=== PATIENT | male | born 1990 | race Caucasian/White ===

== ENCOUNTER 2021-08-22 13:37 | Emergency (ER) | payer OTHER ==
[~2021-08-22] VITALS: Ht 180.3 cm; Wt 65.8 kg
[2021-08-22 13:42] VITALS: BP 137/78
[2021-08-22] MEDS ORDERED: PROZAC 10 MG CA10 MG PO (13:45)
== END 2021-08-22 15:50 | disposition home or self-care (01) ==
LOC: ER 13:37
DX: S61.012A Laceration without foreign body of left thumb without damage to nail, initial encounter (principal); Z79.899 Other long term (current) drug therapy; W45.8XXA Other foreign body or object entering through skin, initial encounter; Y93.89 Activity, other specified; Y92.89 Other specified places as the place of occurrence of the external cause; Y99.8 Other external cause status

== ENCOUNTER 2021-09-02 09:08 | Emergency (ER) | payer OTHER ==
[~2021-09-02] VITALS: Ht 154.9 cm; Wt 65.8 kg
[~2021-09-02 09:08] MED LIST: PROZAC 10 MG CA10 MG PO
[2021-09-02 09:15] VITALS: BP 115/73
== END 2021-09-02 09:46 | disposition home or self-care (01) ==
LOC: ER 09:08
DX: S91.311D Laceration without foreign body, right foot, subsequent encounter (principal); Z79.899 Other long term (current) drug therapy; X58.XXXD Exposure to other specified factors, subsequent encounter